=== PATIENT | female | born 1935 | race Caucasian/White ===

== ENCOUNTER 2016-12-28 23:01 | Emergency (ER) | payer MEDICARE ==
[2016-12-29] MEDS ORDERED: SODIUM CHLORIDE 0.9% 500 ML ONE (01:34)
[2016-12-29] MEDS ORDERED: ONDANSETRON 4 MG/2ML 2 ML VIAL ONE (01:34)
[2016-12-29 02:41] LABS: ALB/GLOB RATIO 1.3 (>1.0); ALBUMIN 3.4 gm/dL (3.5-5.7)
[2016-12-29 02:47] LABS: ABSOLUTE NEUTROPHIL COUNT 4.9 K/mm3 (1.8-7.7); BASO % 0.2 % (0.2-1.0); EOS % 0.2 % (0.9-2.9); HEMATOCRIT 41.3 % (37.0-47.0); HEMOGLOBIN 13.3 gm/l (12.0-16.0); IMM NEUT% 0.2 % (0-1); LYMPH % 15.5 % (15-45); MEAN CELL VOLUME 91.6 fl (81.0-99.0); MEAN CORPUSCULAR HEMOGLOBIN 29.5 pg (27.0-31.0); MEAN CORPUSCULAR HGB CONC 32.2 g/dl (33.0-37.0); MEAN PLATELET VOLUME 11.8 fl (7.4-10.4); MONO # 0.3 (0.0-0.8); MONO % 5.4 % (4-12); NEUT % 78.5 % (43-75); PLATELET COUNT 154 K/mm3 (130-400); RED CELL DISTRIBUTION WIDTH 12.5 % (11.5-14.5)
== END 2016-12-29 03:14 | disposition home or self-care (01) ==
LOC: ED 23:01
DX: R11.10 Vomiting, unspecified (principal); R10.9 Unspecified abdominal pain; G20 Parkinson's disease; E11.9 Type 2 diabetes mellitus without complications; Z79.84 Long term (current) use of oral hypoglycemic drugs